=== PATIENT | male | born 1990 | race African-American/Black ===

== ENCOUNTER 2018-12-09 17:13 | Emergency (ER) | payer OTHER ==
[~2018-12-09] VITALS: Ht 198.1 cm; Wt 90.7 kg
[~2018-12-09 17:13] MED LIST: IBUPROFEN 600600 M1 PO; NORCO 5-325 TA1 EACH PO
[2018-12-09 17:14] VITALS: BP 107/69
[2018-12-09] MEDS ORDERED: IBUPROFEN 600600 M1 PO (18:20)
== END 2018-12-09 18:21 ==
LOC: ER 17:13
DX: S20.212A Contusion of left front wall of thorax, initial encounter (principal); S20.211A Contusion of right front wall of thorax, initial encounter; S00.411A Abrasion of right ear, initial encounter; J45.909 Unspecified asthma, uncomplicated; F17.210 Nicotine dependence, cigarettes, uncomplicated; V43.52XA Car driver injured in collision with other type car in traffic accident, initial encounter; Y93.89 Activity, other specified; Y92.89 Other specified places as the place of occurrence of the external cause; Y99.8 Other external cause status